=== PATIENT | female | born 1985 | race Caucasian/White ===

== ENCOUNTER 2022-04-23 10:21 | Outpatient (CLI) | payer OTHER ==
--- NOTE | 2022-04-23 11:37 | XRay Report ---
RIGHT SHOULDER 3 VIEWS INDICATION / CLINICAL INFORMATION: M25.511 PAIN IN RIGHT SHOULDER. COMPARISON: None available. FINDINGS: BONES / JOINT(S): The joint spaces are well-maintained. No significant arthritis. There is no evidenc e of fracture, subluxation or destructive lesion. SOFT TISSUES: No significant abnormality. ADDITIONAL FINDINGS: The visualized right lung is clear. IMPRESSION: No acute findings. Signer Name: Alec Davidson MD Signed: 04/23/2022 11:33 AM Workstation Name: [facility]
== END 2022-04-23 10:22 | disposition home or self-care (01) ==
LOC: XRAY 10:21
PROVIDERS: ATTEND Internal Medicine
DX: M25.511 Pain in right shoulder (principal)